=== PATIENT | male | born 1955 | race Caucasian/White ===

== ENCOUNTER → 2019-12-14 | Outpatient (CLI) | payer OTHER ==
[~2019-12-14] VITALS: Ht 167.6 cm; Wt 69.9 kg
[~2019-12-14] MED LIST: ASPIRIN EC325 M1 PO; PRINIVIL20 MG PO; SIMVASTATIN40 MG PO; SYNTHROID50 MCG PO
[2019-12-14 08:34] VITALS: BP 163/83
[2019-12-14 08:45] LABS: HEMATOCRIT 41.5 % (42.0-52.0); HEMOGLOBIN 13.8 gm/dL (14.0-18.0); MCHC 33.3 g/dL (28.0-37.0); MCV 90.2 fL (80.0-100.0); MPV 9.2 fl. (7.2-11.1); NUCLEATED RBCS 0 /100WBC; PLATELET COUNT* 172 thou/uL (150-400); RDW-CV 13.9 % (10.5-14.5)
[2019-12-14 08:47] LABS: WBC 169.6 thou/uL (4.0-11.0)
[2019-12-14 08:48] LABS: APTT 25.4 Seconds (25.0-31.3); PROTIME 10.7 Seconds (9.20-11.50)
[2019-12-14 08:55] LABS: CALCIUM 8.8 mg/dL (8.5-10.1); POTASSIUM 4.3 mmol/L (3.5-5.1)
[2019-12-14 09:58] VITALS: BP 159/77
[2019-12-14 10:02] LABS: ABSOLUTE LYMPHOCYTES 164.5 thou/uL (0.8-5.3); ABSOLUTE NEUTROPHILS 5.1 thou/uL (1.6-8.1); PLATELET ESTIMATE ADEQUATE
[2019-12-14 10:15] VITALS: BP 160/76
[2019-12-14 10:45] VITALS: BP 156/80
--- NOTE | 2019-12-29 18:09 | PATH ---
[address] [address] PATHOLOGY RPT PROCEDURE Name: SHANNA SLAUGHTER Room: [facility] Sukhwinder#: [id number] Admission: 12/14/19 Date of : 55 Discharge: Report #: [id number] Path Case #: [id number] [facility] Accession Number: [id number] . 01 Material submitted: . PART A: bone - BONE MARROW BIOPSY PART B: bone - BONE MARROW CLOT PART C: bone - BONE MARROW ASPIRATE SLIDES PART D: bone - PERIPHERAL BLOOD SMEAR PART E: bone - BONE MARROW FLOW . 01 Clinical history: . CLL The patient is a 64-year-old male with a clinical diagnosis of chronic lymphocytic leukemia/small lymphocytic leukemia. A bone marrow biopsy is performed. . 02 Diagnosis: Bone marrow aspirate, biopsy cell clot and peripheral blood: - Peripheral blood with mild normocytic normochromic anemia, marked leukocytosis and absolute atypical lymphocytosis, consistent with chronic lymphocytic leukemia/small lymphocytic lymphoma. - Moderately hypercellular bone marrow with extensive involvement by chronic lymphocytic leukemia/small lymphocytic lymphoma comprising approximately 95% (by immunostain)of the total marrow cellularity. Please see comment. (WILBUR:bell; 12/16/2019) . . Special studies report received from [facility], [address] [place] [address], [address], [place], [address], on case [id number], labeled with their number [id number], dated 12/16/2019. . Flow Cytometry: Hematologic Neoplasia Assessment . Clinical History CLL . Indication for Study Evaluation for chronic lymphocytic leukemia . Specimen Bone Marrow Aspirate . Viability 92% (7AAD exclusion) . Interpretation Bone Marrow Aspirate: [place] [address] PATHOLOGY RPT PROCEDURE Name: SHANNA SLAUGHTER Room: [facility].#: [id number] Admission: 12/14/19 Date of : 55 Discharge: Report #: [id number] Path Case #: [id number] - CD5+ monotypic (clonal) B-cell population (90% of sample) with a B-cell chronic lymphocytic leukemia/small lymphocytic lymphoma (CLL/SLL) immunophenotype . Comments Correlation with available clinical, laboratory, and morphologic data is recommended. If needed, FISH testing (CLL panel), IgVH somatic hypermutation testing, and/or ZAP-70 testing are available. . Populations Analyzed Myeloid Blasts: 0.1% No significant immunophenotypic abnormalities Abnormal B-cells: 90% Scatter properties compatible with small to intermediate cell size, cells characterized as: CD45+, CD5+, CD10-, CD11b-, CD11c-/+, CD19+, CD20+ (dim), CD22+ (dim), CD23+, CD38-/+ very small subset dim, FMC7-, HLA-DR+, sIg kappa+ Remaining 2% B-cells: 0.0%, polytypic/polyclonal sIg light Lymphocytes: chain pattern T-cells: no significant abnormalities of the markers tested CD4+ T-cells: 1.4% (including 0.1% CD57+ cells) CD8+ T-cells: 0.4% (including 0.1% CD57+ cells) CD4:CD8: 3.3 NK cells: 0.5% Neutrophilic Cells: 6.3% No significant abnormalities of the markers tested Monocytic Cells: 1% No significant abnormalities of the markers tested Eosinophils: 0.4% No relative increase Basophils: 0.1% No relative increase Hematogones: 0.1% Normal B-cell precursors . Morphologic Evaluation A slide was reviewed for quality tech purposes only. . Specimen Description Total Cell Yield: 106.81 x10 and 6 . Reagent(s) Used CD2, CD3, CD4, CD5, CD7, CD8, CD10, CD11b, CD11c, CD13, CD14, CD16, CD19, CD20, CD22, CD23, CD33, CD34, CD38, CD45, CD56, CD57, CD64, CD117, FMC-7, HLA-DR, kappa, lambda . at [facility]. Analisa Delvalle MD [place] [address] PATHOLOGY RPT PROCEDURE Name: SHANNA SLAUGHTER Room: [facility] Pretty#: [id number] Admission: 12/14/19 Date of : 55 Discharge: Report #: [id number] Path Case #: [id number] Intended Use Flow cytometry is optimally used to immunophenotypically characterize abnormal populations when they are detected. Negative flow cytometry results do not exclude lymphoma or neoplasia. Possible false negative flow cytometry results may occur in, but are not limited to, the following: neoplastic cells in Hodgkin lymphoma are not typically adequately represented by routine clinical flow cytometry; neoplastic cells may be lost or inadequately represented due to degeneration, sample processing, sampling artifact, or patchy involvement; plasma cells are typically underrepresented by flow cytometry; immature cells/blasts may be underrepresented due to hemodilution; myeloproliferative disorders and low grade myelodysplasia may not have immunophenotypic abnormalities or increased blasts. Correlation with all available clinical, laboratory, and morphologic data is always necessary to assess for the possibility of false negative flow cytometry results and to establish a diagnosis. Each marker in this analysis was used to assess for potential antigenic abnormalities or to evaluate detected abnormalities. . Any image or images that accompany this report are client relations representative images only and should not be used to render a diagnosis. . Disclaimer(s) This test was developed and its performance characteristics determined by [facility]. It has not been cleared or approved by the Food and Drug Administration. . Performing [facility] is a business unit of [employer] a wholly-owned subsidiary of [employer]. . This test was performed at [facility]. at [address], [place], [address] - Care Rep: Oswaldo Drake MD. . For inquiries, the physician may contact Lab: [phone] . A complete copy of the report is on file. . Professional services performed by [facility]. at [address], [place] [address]. Technical services performed by [facility]. at [address], [place] [address]. . (WILBUR:ana 12/16/2019) . GUTIERREZ 12/18/2019 [address] [facility] . 02 [place] [address] PATHOLOGY RPT PROCEDURE Name: PRICESHANNA Jagjit Room: [facility]#: [id number] Admission: 12/14/19 Date of : 55 Discharge: Report #: [id number] Path Case #: [id number] Comment: Overall, the bone marrow biopsy is extensively involved by CLL/SLL, comprising approximately 95% of the total marrow cellularity. The lymphomatous infiltrates express CD20, CD19 and CD23 with co-expression of CD5. BCL-1 is negative. (WILBUR:bell; 12/16/2019) . . Surgical Pathology Cancer Case Summary BONE MARROW: Final Integrated Diagnosis . Final Integrated Diagnosis . Mature B-cell neoplasms ___ Chronic lymphocytic leukemia/small lymphocytic lymphoma . . BONE MARROW: Histologic Assessment Clinical context ___ New diagnosis, treatment status unknown . Procedure ___ Bone marrow aspirate clot ___ Bone marrow core biopsy ___ Bone marrow core touch preparation (imprint) . Peripheral Blood Complete Blood Cell Count White blood cell count: 169.6 x103 / 5L Neutrophils: 3% Monocytes: 0% Lymphocytes: 97% Eosinophils: 0% Basophils: 0% Blasts: 0% Hemoglobin: 13.8 g/dL Platelets: 172 x103 / 5L . Bone Marrow Morphology . Bone Marrow Cellularity: 50-60% . Bone Marrow Blasts: 1% . Bone Marrow Lymphocytes: 56% . Dysplasia ___ Absent . [place] [address] PATHOLOGY RPT PROCEDURE Name: SHANNA SLAUGHTER Room: [facility]#: [id number] Admission: 12/14/19 Date of : 55 Discharge: Report #: [id number] Path Case #: [id number] . Iron stain ___ No ring sideroblasts detected . Reticulin/Trichrome stains ___ MF-1 . Histologic Group ___ Mature B-cell neoplasm . 02 Addendum: . Special studies report received from [facility], [address] [place] [address], [address], [place], [address], on case [id number], labeled with their number [id number] dated 12/18/2019. . Fluorescence in situ Hybridization (FISH) Report [employer] Analysis . 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 Specimen Type: Bone Marrow . Indication for Study: Evaluate for CLL . INTERPRETATION: . Fluorescence in situ hybridization (FISH) analysis was performed on this patient's specimen using DNA probes for CLL panel. . Two hundred interphase nuclei were examined for each probe and the signal patterns revealed the following: . 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 Two populations of nuclei were observed: one (82.5% of nuclei) with one copy of a deleted and one copy of a non-deleted chromosome 13; and the second (15.0% of nuclei) with one copy of 13q14/DLEU1 signal and three to four copies of 13q34/TFDP1 signal, suggesting one copy of a nondeleted chromosome 13 along with two to three copies of a deleted chromosome 13. Conventional cytogenetic analysis may provide additional information. . The signal pattern obtained with the remaining probes did not differ significantly from the normal controls. . Deletion of the long arm of chromosome 13q is the most common genetic alteration detected in patients with B-cell chronic lymphocytic leukemia (B-CLL) by FISH analysis and is seen in 50 to 60% of patients. Isolated deletion 13q14.3 is considered a favorable prognostic [place] [address] PATHOLOGY RPT PROCEDURE Name: SHANNA SLAUGHTER [id number] Admission: 12/14/19 Date of : 55 Discharge: Report #: [id number] Path Case #: [id number] absence of adverse genetic markers. . Genetic changes other than those assayed in this study cannot be ruled out on the basis of this testing. Correlation with cytogenetic, clinical and hematopathological findings is suggested for a complete interpretation of the results. Follow-up FISH analysis may be considered as a means to monitor the clinical course of the disease. . . See Flow Cytometry report [id number] for further information. See Cytogenetic report [id number] for further information. . The following [employer] FISH analysis was performed on this patient's specimen: . Probe Detection Result ISCN Parameters Centromere 12 Detects a trisomy 12 Not Detected nuc karely(I77A2y7)[200] . . 13q14(DLEU1) Detects a deletion Detected nuc karely(JSNY6i7, of 13q ZQQW0u3)[165/200]/ (ENGM5a5,IMWH1o3 4) [30/200] . ANANT/11q Detects a deletion Not Detected nuc karely(ATMx2)[200] of ANANT gene . TP53/17p13 Detects a deletion Not Detected nuc karely(TP53x2)[200] of TP53 gene . CCND1/IGH-t Detects a CCND1/IGH Not Detected nuc karely(CCND1,IGH)x2 (11;14) translocation [200] . . at [facility]. Tari Kwong, Ph.D., FAC Director of Cytogenetics and Molecular Oncology . Methodology: The patient specimen is processed onto a glass slide. Fluorescent DNA probe(s) is(are) applied to the cells on the slide under conditions of denaturation followed by hybridization. Stringency washes are applied and the slide is subsequently counterstained. A minimum of 100 interphase nuclei are analyzed unless otherwise indicated above. . Intended Use: This assay is considered qualitative and is not intended to be used as a [address] [place] [address] PATHOLOGY RPT PROCEDURE Name: SHANNA SLAUGHTER Room: [facility] Pretty#: [id number] Admission: 12/14/19 Date of : 55 Discharge: Report #: [id number] Path Case #: [id number] measure of quantitative comparison. . Disclaimer This Test was performed by [facility] [employer] [facility]. at [address] [place] [address], [address], [address]. [facility] is a business unit of [employer] a wholly-owned subsidiary of [employer]. . . This test was developed and its performance characteristics determined by [employer]. It has not been cleared by the Food and Drug Administration. The FDA has determined that such clearance or approval is not necessary. . Any image(s) that accompany this report is/are a client relations representative image(s) only and should not be used to render a diagnosis. . This test was developed and its performance determined by [employer]. It has not been cleared or approved by the U.S. Food and Drug Administration. This test is used for clinical purposes. . . A complete copy of the report is on file. . Professional services performed by [facility], [address] [place] [address], [address]. Technical services performed by [facility], [address] [place] [address], [address]. . . RONAN: 12/20/2019) . QMS/12/20/2019 Addendum Electronically Signed by Angela Yancey MD ([facility] [place]) Addendum #2: Special studies report received from [facility], [address] [place] [address], [address], on case [id number], labeled with their number [id number], dated 12/22/2019. . Cytogenetic Analysis Report . 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 Specimen Type: Bone Marrow . Indication for Study: Chronic [place] [address] PATHOLOGY RPT PROCEDURE Name: SHANNA SLAUGHTER Room: [facility]#: [id number] Admission: 12/14/19 Date of : 55 Discharge: Report #: [id number] Path Case #: [id number] INTERPRETATION: Cytogenetic analysis revealed ten of twenty metaphase cells examined with a loss of a copy of chromosomes 6 and 13, a peicentric inversion of a chromosome 10, and an unidentified marker chromosome. Due to dsks-nh-hnfs variation, the karyotypic description is a composite, listing only the consistent clonal changes. No other clonal abnormalities were observed. Please note that suboptimal chromosome band length and morphology precluded complete characterization of the metaphase cells in this study. . The finding of clonal numerical and structural abnormalities indicates a neoplastic process. These clonal abnormalities can be used to monitor this patient's response to therapy. Please note that the abnormal cells were found exclusively in B cell stimulated cultures, suggestive of a lymphoproliferative disorder. These results should be interpreted in the context of clinical and pathologic findings. . See Flow Cytometry report [id number] for further information. See FISH report [id number] for further information. . Number of Metaphases Counted: 20 Banding: G-Banding Number of Metaphase Cells Analyzed: 20 Band Level: 300 Number of Metaphase Cells Karyotyped:4 Cultures Established:Unstimulated/ Stimulated . . at [facility]. Tari Kwong, Ph.D., [facility] Director of Cytogenetics and Molecular Oncology . Disclaimer This Test was performed by [facility]. at [address] [place] [address], [place] [address], [place], [address]. . [facility] is a business unit of [employer] a wholly-owned subsidiary of [employer]. . Any image(s) that accompany this report is/are a client relations representative image(s) only and should not be used to render a diagnosis. . Based on the resolution of this study, standard cytogenetic methodology does not routinely detect subtle or sub-microscopic rearrangements or low level mosaicism. . A complete copy of the report is on file. . Professional services performed by [facility]. at [address] [place] [address], [place] [address], [place] [address]. [place] [address] PATHOLOGY RPT PROCEDURE Name: SHANNA SLAUGHTER Room: [facility] Pretty#: [id number] Admission: 12/14/19 Date of : 55 Discharge: Report #: [id number] Path Case #: [id number] [facility] [facility]. at [facility], [facility] [address], [place] [address]. . RONAN: 12/23/2019 . QMS/12/23/2019 Addendum Electronically Signed by Angela Yancey MD ([facility] [place]) . 02 Electronically signed: . Angela Yancey MD, Pathologist NPI- [id number] . 01 Gross description: . A. The specimen is received in formalin, labeled "Bestgen, Shanna, core" and consists of a merchant bone core measuring 1.3 cm in length and 0.2 cm in diameter which is entirely submitted in A1 following decalcification. . B. The specimen is received in formalin, labeled "Bestgen, Shanna, clot" and consists of blood clot measuring 3.0 x 1.6 x 0.6 cm which is entirely submitted in B1-B2. (SDY; 12/14/2019) SYU/SYU 12/16/2019 1504 Local . 02 Microscopic: . The bone marrow biopsy is performed by Dr. Aguilar at [facility]. Specimens are submitted for morphology, flow cytometry and cytogenetic studies. . CBC Data (12/14/19): WBC 169.6, RBC 4.60, hemoglobin 13.8, hematocrit 41.5, MCV 90.2, RDW 13.9%, platelet count 172,000. White blood cell count differential: 3% segs, 97% lymphs. . Peripheral Blood: Red blood cells are normochromic with minimal anisopoikilocytosis including occasional microcytic forms without schistocytes or morphologic evidence of a hemolytic process identified. Platelets are normal in number and morphology. White blood cells are markedly increased with predominance of atypical lymphocytes. The lymphocytes are mostly small with clumped chromatin, inconspicuous nucleoli and scant cytoplasm, consistent with lymphoma cells. There are no circulating blasts or myeloid left shift identified. . Bone Marrow Aspirate: Marrow spicules are adequate and hypercellular. Numerous neoplastic lymphoid cells, similar to those previously mentioned in the peripheral blood are noted. There is no increase in blasts identified. Megakaryocytes are normal in number and morphology. Erythroid and granulocytic precursors show full spectrum maturation. 500 cell count: 1% blasts, 1% promyelocytes, 5% meta- and myelocytes, 31% segs and bands, [facility] [address] [place] [address] PATHOLOGY RPT PROCEDURE Name: SHANNA SLAUGHTER Room: [facility]#: [id number] Admission: 12/14/19 Date of : 55 Discharge: Report #: [id number] Path Case #: [id number] 5% erythroid precursors, 56% lymphocytes, 1% monocytes. The M:E ratio is 7:1, consistent with myeloid hyperplasia. . Iron stain: Mildly increased marrow iron stores without ringed sideroblasts. . Bone Marrow Biopsy and Cell Clot: The bone marrow core biopsy averages 50-60% in cellularity. Megakaryocytes average 2-6/hpf. The normal marrow hematopoiesis is extensively replaced by diffuse proliferation of neoplastic lymphoid cells, similar to those identified in the peripheral blood and aspirate smears. The cell clot shows few clusters of hematopoietic elements and is similar to core biopsy morphologically. To confirm flow cytometric findings and characterize the lymphoma cells in a tissue architectural context, immunohistochemical stains are performed with appropriate controls: . (Block A1) CD20: highlights approximately 95% neoplastic B lymphoid cells CD3: highlights T lymphoid cells CD5: positive for CD20 co-expression CD23: positive BCL-1: negative . Iron stain (A1 and B1): Positive Reticulin stain (A1): Absent to minimal reticulin fibrosis (MF0-1) . (WILBUR:bell; 12/16/2019) . 02 Pathologist provided ICD-10: C91.10, C85.10, D64.9, D72.829, D72.820 . 02 CPT . 140795, 066236, 936834, 273431, 981444, 992537, 827687, 074595, 278811, M96476, I35476 Specimen Comment: A courtesy copy of this report has been sent to [phone], [phone] Specimen Comment: [phone], , Specimen Comment: Report sent to ,DR CHRISTIANSON,DR JAMES / DR LEVY Performed at: [address], [place] [id number] MD Trevor Chua MD Phone: [phone] Performed at: [address] [id number] MD Angela Yancey MD Phone: [phone]
== END | disposition home or self-care (01) ==
LOC: M.INT 07:58
PROVIDERS: Radiology Diagnostic Radiology; ATTEND Internal Medicine Hematology & Oncology
DX: C91.10 Chronic lymphocytic leukemia of B-cell type not having achieved remission (principal); C85.10 Unspecified B-cell lymphoma, unspecified site; D64.9 Anemia, unspecified; I10 Essential (primary) hypertension; E03.9 Hypothyroidism, unspecified; F17.210 Nicotine dependence, cigarettes, uncomplicated; Z98.890 Other specified postprocedural states; Z79.899 Other long term (current) drug therapy; Z79.82 Long term (current) use of aspirin; Z79.01 Long term (current) use of anticoagulants

== ENCOUNTER 2021-05-18 19:55 | Emergency (ER) | payer OTHER, MEDICARE ==
[~2021-05-18] VITALS: Ht 167.6 cm; Wt 69.0 kg
[~2021-05-18 19:55] MED LIST changes: +AVAPRO 150 MG150 M1 PO; +CARVEDILOL12.5 MG PO; +IMBRUVICA140 MG PO; +PLAVIX 75 MG TA75 MG PO; +ROSUVASTATIN CA40 MG PO
[2021-05-18] MEDS ORDERED: PLAVIX 75 MG TA75 MG PO (20:06)
[2021-05-18] MEDS ORDERED: HYDRALAZINE 2525 MG PO (20:06)
[2021-05-18] MEDS ORDERED: CARVEDILOL12.5 MG PO (20:06)
[2021-05-18] MEDS ORDERED: NEXLETOL180 MG PO (20:07)
[2021-05-18] MEDS ORDERED: IMBRUVICA140 MG PO (20:07)
[2021-05-18 20:52] LABS: ABSOLUTE EOSINOPHILS 0.3 thou/uL (0.0-0.7); ABSOLUTE LYMPHOCYTES 3.3 thou/uL (0.8-5.3); ABSOLUTE MONOCYTES 0.8 thou/uL (0.0-1.2); ABSOLUTE NEUTROPHILS 4.2 thou/uL (1.6-8.1); BASOPHILS 0.2 %; EOSINOPHILS 3.8 %; HEMATOCRIT 44.1 % (42.0-52.0); LYMPHOCYTES 38.5 %; MCH 29.9 pg (26.0-34.0); MCHC 34.1 g/dL (28.0-37.0); MCV 87.6 fL (80.0-100.0); MONOCYTES 9.5 %; MPV 9.3 fl. (7.2-11.1); NUCLEATED RBCS 0 /100WBC; PLATELET COUNT* 275 thou/uL (150-400); RBC 5.04 mil/uL (4.50-6.00); RDW-CV 13.6 % (10.5-14.5); WBC 8.6 thou/uL (4.0-11.0)
[2021-05-18 21:01] LABS: CALCIUM 9.7 mg/dL (8.5-10.1); CREATININE 1.1 mg/dL (0.6-1.3); MAGNESIUM 2.3 mg/dL (1.8-2.4); POTASSIUM 3.6 mmol/L (3.5-5.1)
[2021-05-18 21:31] LABS: ALBUMIN 3.6 g/dL (3.4-5.0); DIRECT BILIRUBIN 0.1 mg/dL (<0.1-0.3); TOTAL BILIRUBIN 0.5 mg/dL (<0.1-1.0); TOTAL PROTEIN 6.9 g/dL (6.4-8.2)
[2021-05-18] MEDS ORDERED: CLONIDINE HCL0.1 MG PO (22:36)
[2021-05-18 22:46] VITALS: BP 146/73
--- NOTE | 2021-05-19 13:25 | EKG ---
[place] [address] ELECTROCARDIOGRAM REPORT Name: SHANNA SLAUGHTER Room: [facility]#: [id number] Admission: 05/18/21 Attend Phys: Discharge: 05/18/21 Date of : 55 Date of Service: 05/18/212009 Report #: [id number] THIS REPORT FOR: //name// [facility] ED Test Date: 2021-05-18 Test Time: 20:10:06 Pat Name: SHANNA SLAUGHTER Department: Room: Gender: Box Office Clerk: : 1955 Requested By: Freida Barr Order Number: [id number] MD: Tye Prieto Measurements Intervals Hermon Rate: 68 P: 80 MD: 160 QRS: 41 QRSD: 104 T: 0 QT: 379 QTc: 404 Interpretive Statements Sinus rhythm Multiple ventricular premature complexes Minimal ST depression, inferior leads Compared to ECG 06/16/2012 21:08:34 Ventricular premature complex(es) now present ST (T wave) deviation now present Electronically Signed On 05-19-2021 13:25:07 CDT by Tye Prieto [email or web address] <ELECTRONICALLY SIGNED> By: Tye Prieto MD, FACC 05/19/21 1325 09 09 Tye Prieto MD, FACC /EPI
== END 2021-05-18 22:47 | disposition home or self-care (01) ==
LOC: M.ERS 19:55
PROVIDERS: Emergency Medicine
DX: I10 Essential (primary) hypertension (principal); R07.89 Other chest pain; R10.13 Epigastric pain; R19.7 Diarrhea, unspecified; R42 Dizziness and giddiness; E03.9 Hypothyroidism, unspecified; E78.5 Hyperlipidemia, unspecified; Z86.73 Personal history of transient ischemic attack (TIA), and cerebral infarction without residual deficits; Z79.899 Other long term (current) drug therapy; Z79.82 Long term (current) use of aspirin